=== PATIENT | male | born 1955 | race Caucasian/White ===

== ENCOUNTER 2016-11-12 07:49 | Emergency (ER) | payer BC ==
[~2016-11-12] VITALS: Ht 177.8 cm; Wt 73.7 kg
[~2016-11-12 07:49] MED LIST: DORZ1SOL OPB; TRAV0.00 OPB
[2016-11-12 07:52] VITALS: TEMP 36.9; Ht 177.8 cm; Wt 73.7 kg
[2016-11-12] MEDS ORDERED: DORZ2SOL17 OPB (08:03)
[2016-11-12 08:35] LABS: BASO % 0.5 %; BASO ABS # 0.04 K/uL (0-0.2); COMPLETE YES; EOS % 2.8 %; HEMATOCRIT 48.6 % (42-52); LYMPH % 29.1 %; LYMPH ABS # 2.42 K/uL (1.2-3.4); MEAN CELL VOLUME 94.2 fL (80-100); MEAN CORPUSCULAR HEMOGLOBIN 32.8 pg (25-34); MEAN CORPUSCULAR HGB CONC 34.8 g/dl (32-36); MEAN PLATELET VOLUME 10.1 fL (7.4-10.4); MONO % 8.7 %; NEUT % 58.9 %; PLATELET COUNT 315 K/uL (130-400); RED BLOOD COUNT 5.16 M/uL (4.7-6.1); WHITE BLOOD COUNT 8.31 K/uL (4.8-10.8)
--- NOTE | 2016-11-12 08:50 | DIAGNOSTIC IMAGING REPORT ---
LEFT LOWER EXTREMITY VENOUS DOPPLER CLINICAL HISTORY: Left leg cramping, pain COMPARISON STUDY: No previous studies for comparison. TECHNIQUE: Sonography of the deep venous system of the left lower extremity was performed. Compression and augmentation were evaluated. FINDINGS: The common femoral, superficial femoral and popliteal veins were compressible. Augmentation was normal. Flow was shown within the deep calf vessels. IMPRESSION: No evidence of deep venous thrombus within the left lower extremity. Electronically signed by: Ross Mckinney M.D. 11/12/2016 8:49 AM Dictated Date/Time: 11/12/2016 8:48 AM
[2016-11-12 08:57] LABS: BUN/CREATININE RATIO 21.7 (10-20); CALCIUM 9.1 mg/dl (8.5-10.1); MAGNESIUM 2.4 mg/dl (1.8-2.4); POTASSIUM 4.1 mmol/L (3.5-5.1)
[2016-11-12 09:00] LABS: ALB/GLOB RATIO 1.1 (0.9-2)
[2016-11-12 09:44] LABS: LYME DISEASE AB IGG NEG (NEG); LYME DISEASE AB IGM NEG (NEG)
[2016-11-12] MEDS ORDERED: HYDR-5688 PO (10:09)
[2016-11-12 10:14] VITALS: BP 170/95; PULSE 56; O2SAT 98
--- NOTE | 2016-11-12 10:15 | EMERGENCY ROOM VISIT NOTE ---
History First contact with patient: 08:07 Chief Complaint: LEG PAIN,LEG INJURY Stated Complaint: LEFT LEG PAIN History of Present Illness The patient is a 61 year old male who presents to the Emergency Room via private vehicle coming by with complaints of "left leg pain". The patient states that he's been experiencing left leg pain for quite some time now. He states that he at times will experience cramping sensation in the left lateral thigh. He states that the frequency of the spasms appear more frequent. He states that they're more painful than a charley horse. He states that they only last for a few seconds. He rates the pain as a 7-8/10. He denies any fevers, chills, genital pain. He denies any trauma to the area. He denies any pain at this current time. Review of Systems A complete 6-point Review of Systems was discussed with the patient, with pertinent positives and negatives listed in the History of Present Illness. All remaining Review of Systems questions can be considered negative unless otherwise specified. Past Medical/Surgical History Cholecystectomy. Family History Diabetes, cancer. Social History Smoking Status: Never Smoker Patient lives at home with . Current/Historical Medications Scheduled Dorzolamide Hcl (Trusopt Oph), 1 DROP OPB QAM Travoprost (Travatan Z), 1 DROPS OPB QAM Scheduled PRN Hydrocodone/Acetaminophen 5MG/325MG ([place] 5MG/325MG), 1-2 TABLET PO Q6 PRN for Pain Physical Exam Vital Signs Date Time Temp Pulse Resp B/P (MAP) Pulse Ox O2 Delivery O2 Flow Rate FiO2 11/12/16 10:14 56 18 170/95 98 Room Air 11/12/16 07:52 36.9 72 18 140/86 96 Room Air Physical Exam VITAL SIGNS - Vital signs and nursing notes were reviewed. patient is afebrile, hypertensive 140/86, non-tachycardic and saturating well on room air 96%. GENERAL -61-year-old male appearing his stated age who is in no acute distress. Communicates well with provider and answers questions appropriately. SKIN - Without rashes. Skin overlying the left leg is unremarkable. LUNGS - Chest wall symmetric without accessory muscle use, intercostals retractions, or central cyanosis. Normal vesicular breath sounds CTA B/L. No wheezes, rales, or rhonchi appreciated. CARDIAC - RRR with S1/S2. No murmur, rubs, or gallops appreciated. ABDOMEN - Abdominal contour without pulsations or visible masses. BS normoactive all four quadrants. No tenderness, palpable masses, hepatosplenomegaly, or ascites noted. EXTREMITIES - No clubbing or peripheral cyanosis. No pretibial edema present. There is no tenderness appreciated of the left leg. He is neurovascularly intact in this region. +5/5 strength noted in UE/LE bilaterally. No bony tenderness. Unremarkable examination of the extremity. Medical Decision & Procedures ER Provider Diagnostic Interpretation: LEFT LOWER EXTREMITY VENOUS DOPPLER CLINICAL HISTORY: Left leg cramping, pain COMPARISON STUDY: No previous studies for comparison. TECHNIQUE: Sonography of the deep venous system of the left lower extremity was performed. Compression and augmentation were evaluated. FINDINGS: The common femoral, superficial femoral and popliteal veins were compressible. Augmentation was normal. Flow was shown within the deep calf vessels. IMPRESSION: No evidence of deep venous thrombus within the left lower extremity. Electronically signed by: Ross Mckinney M.D. 11/12/2016 8:49 AM Dictated Date/Time: 11/12/2016 8:48 AM Laboratory Results 11/12/16 08:25 Red Blood Count 5.16, Mean Corpuscular Volume 94.2, Mean Corpuscular Hemoglobin 32.8, Mean Corpuscular Hemoglobin Concent 34.8, Mean Platelet Volume 10.1, Neutrophils (%) (Auto) 58.9, Lymphocytes (%) (Auto) 29.1, Monocytes (%) (Auto) 8.7, Eosinophils (%) (Auto) 2.8, Basophils (%) (Auto) 0.5, Neutrophils # (Auto) 4.90, Lymphocytes # (Auto) 2.42, Monocytes # (Auto) 0.72, Eosinophils # (Auto) 0.23, Basophils # (Auto) 0.04 11/12/16 08:25 Test 11/12/16 08:25 White Blood Count 8.31 K/uL (4.8-10.8) Red Blood Count 5.16 M/uL (4.7-6.1) Hemoglobin 16.9 g/dL (14.0-18.0) Hematocrit 48.6 % (42-52) Mean Corpuscular Volume 94.2 fL (80-100) Mean Corpuscular Hemoglobin 32.8 pg (25-34) Mean Corpuscular Hemoglobin Concent 34.8 g/dl (32-36) Platelet Count 315 K/uL (130-400) Mean Platelet Volume 10.1 fL (7.4-10.4) Neutrophils (%) (Auto) 58.9 % Lymphocytes (%) (Auto) 29.1 % Monocytes (%) (Auto) 8.7 % Eosinophils (%) (Auto) 2.8 % Basophils (%) (Auto) 0.5 % Neutrophils # (Auto) 4.90 K/uL (1.4-6.5) Lymphocytes # (Auto) 2.42 K/uL (1.2-3.4) Monocytes # (Auto) 0.72 K/uL (0.11-0.59) Eosinophils # (Auto) 0.23 K/uL (0-0.5) Basophils # (Auto) 0.04 K/uL (0-0.2) RDW Standard Deviation 47.7 fL (36.4-46.3) RDW Coefficient of Variation 13.9 % (11.5-14.5) Immature Granulocyte % (Auto) 0.0 % Immature Granulocyte # (Auto) 0.00 K/uL (0.00-0.02) Anion Gap 4.0 mmol/L (3-11) Est Creatinine Clear Calc Drug Dose 80.1 ml/min Estimated GFR () 93.7 Estimated GFR (Non- 80.9 BUN/Creatinine Ratio 21.7 (10-20) Calcium Level 9.1 mg/dl (8.5-10.1) Magnesium Level 2.4 mg/dl (1.8-2.4) Total Bilirubin 1.7 mg/dl (0.2-1) Aspartate Amino Transf (AST/SGOT) 19 U/L (15-37) Alanine Aminotransferase (ALT/SGPT) 28 U/L (12-78) Alkaline Phosphatase 52 U/L (45-117) Total Creatine Kinase 98 U/L (39-308) Total Protein 7.5 gm/dl (6.4-8.2) Albumin 4.0 gm/dl (3.4-5.0) Globulin 3.5 gm/dl (2.5-4.0) Albumin/Globulin Ratio 1.1 (0.9-2) Lyme Disease IgG Antibody NEG (NEG) Lyme Disease IgM Antibody NEG (NEG) Medical Decision Patient was seen and evaluated as above. After obtaining a thorough history and physical examination ultrasound was obtained as well as intravenous access. Patient was asked to us today with spasmodic left leg pain that is intermittent. He denies any pain upon presentation. He is well-appearing. CBC reveals no concerning leukocytosis, or anemia. CMP is significant for that of elevated bilirubin at 1.7. No other significant abnormality. Ultrasound negative for DVT. The patient this time appears stable for outpatient management, no evidence of blood clot, infection or fracture. There is been no history of trauma. He is able to ambulate. At this time I suspect likely nerve irritation. He was educated upon importance of follow-up. He was educated upon worrisome symptoms which to return, had questions prior to discharge, and was discharged home in good condition. He was given a short term supply pain medication for home. In evaluation treatment of this patient following differential diagnoses were entertained: Neurologic pain, fracture, DVT, electrolyte metabolic, among others. [place] Drug Monitoring Program Search Results: patient reviewed within database, no issues identified Impression Primary Impression: Leg pain, left Departure Information Dispostion Home / Self-Care Condition GOOD Prescriptions Hydrocodone/Acetaminophen 5MG/325MG ([place] 5MG/325MG) Tab 1-2 TABLET PO Q6 Y for Pain, #15 TAB For Initial Treatment Prov: Kurt Good PA-C 11/12/16 Referrals Sera Oh M.D. (PCP) Patient Instructions My [facility] Additional Instructions You have been treated in the Emergency Department for leg pain. You have been prescribed NORCO to be used for pain control. This is a narcotic medication. You cannot drive or consume alcohol while on this medicine. This medicine should only be used for pain that cannot be controlled with over-the- counter pain medicines. PLEASE NO TYLENOL WITH THIS For pain control, you can use the following [id number] medicines (if >12 yo):. - Regular strength (200 mg/tab) Advil (ibuprofen) 1-2 tabs every 4-6 hours as needed. Do not exceed a dose of 3200 mg per day. If this is a recent injury (<24 hrs), ice can be applied to the area of pain for the first 3 days to help decrease pain and inflammation. Ice massages can be performed by freezing water in a paper cup, peeling back the cup to expose the ice and then massaging over the affected area. Please follow-up with her family doctor regarding the elevated bilirubin, and your leg pain today. Return to the Emergency Department if your current symptoms worsen despite treatment course outlined above.
== END 2016-11-12 10:24 | disposition home or self-care (01) ==
LOC: C.EDB 07:51
DX: M79.605 Pain in left leg (principal); Z90.49 Acquired absence of other specified parts of digestive tract; Z83.3 Family history of diabetes mellitus

== ENCOUNTER 2023-02-23 16:29 | Inpatient (IN) ==
[2023-02-23 17:15] LABS: Alanine Aminotransferase 272 U/L (7-52); Albumin Globulin Ratio 0.7 (0.9-2); Albumin Level 3.2 gm/dl (3.4-5.0); Alkaline Phosphatase 134 U/L (34-104); Anion Gap 6 (3-11); Aspartate Aminotransferase 274 U/L (13-39); BUN Creatinine Ratio 23.9 (10-20); Bilirubin,Total 3.9 mg/dl (0.2-1.0); Blood Urea Nitrogen 28 mg/dl (6-23); Calcium 8.4 mg/dl (8.6-10.3); Carbon Dioxide 21 mmol/L (21-32); Chloride 97 mmol/L (98-107); Creatinine Clr Calc Pharmacy 63.3 ml/min; Est GFR (African American) 74.3 ml/min; Est GFR (Non-African American) 64.1 ml/min; Globulin 4.4 gm/dl (2.5-4.0); Glucose 117 mg/dl (70-99(Fasting)); Potassium 4.1 mmol/L (3.5-5.1); Sodium 124 mmol/L (136-145); Total Protein 7.6 gm/dl (6.0-8.3)
[2023-02-23] MEDS ORDERED: SODIUM CHLORIDE 0.9% 1,000 ML IV ONE ×2 (17:26→21:54)
[2023-02-23 17:30] LABS: Hematocrit (blood only) 32.4 % (42.0-52.0); Hemoglobin 12.1 g/dl (14.0-18.0); Mean Corpuscular Hemoglobin 34.3 pg (25.0-34.0); Mean Corpuscular Hgb Conc 37.3 g/dL (32.0-36.0); Mean Corpuscular Volume 91.8 fL (80.0-100.0); Mean Platelet Volume 13.2 fL (9.4-12.4); Nucleated RBC # (auto) 0.05 K/uL (0.00-0.12); Nucleated RBC % (auto) 0.3 %; Platelet Count 315 K/uL (130-400); RDW Coefficient of Variation 19.1 % (11.5-14.5); RDW Standard Deviation 47.9 fL (36.4-46.3); Red Blood Count 3.53 M/uL (4.70-6.10); White Blood Count 19.35 K/ul (4.8-10.8)
--- NOTE | 2023-02-23 17:36 | XRay Report ---
XR chest 1V not portable CLINICAL HISTORY: Shortness of breath. COMPARISON STUDY: Chest radiograph February 20, 2023. FINDINGS: Lung volumes are normal. There is no consolidation to suggest pneumonia. Calcified granulom a within the right midlung is unchanged and benign. There is no pneumothorax or pleural effusion. Car diac size is normal. Mediastinal contours are normal. There is no evidence for pulmonary edema. IMPRESSION: No acute cardiopulmonary findings. ACT 112: Negative or not required by law. Electronically signed by: Ross Mckinney M.D. 02/23/2023 5:35 PM
[2023-02-23 17:50] LABS: Influenza A virus by PCR Negative (Neg); Influenza B virus by PCR Negative (Neg); RSV by PCR Negative (Neg); SARS CoV2 RNA(COVID-19) Ceph NEGATIVE (Negative)
[2023-02-23 17:57] LABS: Basophils # (auto) 0.07 K/uL (0.00-0.20); Basophils % (auto) 0.4 %; Eosinophils # (auto) 0.03 K/uL (0.00-0.50); Eosinophils % (auto) 0.2 %; Immature Granulocytes # (auto) 0.47 K/uL (0.01-0.20); Immature Granulocytes % (auto) 2.4 %; Lymphocytes # (auto) 4.48 K/uL (1.20-3.40); Lymphocytes % (auto) 23.2 %; Monocytes # (auto) 6.28 K/uL (0.11-0.59); Monocytes % (auto) 32.5 %; Neutrophils # (auto) 8.02 K/uL (1.40-6.50); Neutrophils % (auto) 41.3 %
[2023-02-23 18:18] LABS: Procalcitonin 0.77 ng/ml (0-0.5)
[2023-02-23 18:30] LABS: Lyme Ab IgG w/WB Rflx Positive (Negative); Lyme Ab IgM w/WB Rflx Positive (Negative)
[2023-02-23] MEDS ORDERED: OPTIRAY 320 100ml IV ONE (18:36)
[2023-02-23] MEDS ORDERED: cefTRIAXone SODIUM 2,000 MG/50 ML BAG IV STA (18:38)
--- NOTE | 2023-02-23 19:15 | CT Scan Report ---
CT OF THE ABDOMEN AND PELVIS WITH CONTRAST CLINICAL HISTORY: Fever, elevated lfts. COMPARISON STUDY: Right upper quadrant ultrasound January 04, 2016. CT of the chest, abdomen pelvi s November 12, 2015. TECHNIQUE: Following IV administration of 91 mL of Optiray, axial images of the abdomen and pelvis we re obtained from the lung bases to the proximal femurs. Images were reviewed in the axial, sagittal, and coronal planes. IV contrast was administered without complication. Automated exposure control wa s utilized for the study. A dose lowering technique was utilized adhering to the principles of ALARA . CT DOSE: 918.82 mGy.cm FINDINGS: Lung bases are unremarkable. No pneumatosis, free air or portal venous gas is present. The liver is unremarkable by CT. There is no biliary ductal dilatation status post cholecystectomy. Splee n is not visualized. Enhancing nodules within the left upper quadrant have mildly increased in size s alisia prior CT. These represent splenules. The pancreas and adrenal glands are unremarkable. Water att enuation bilateral renal lesions reflect cysts. Multiple bilateral renal calculi measure up to 7 mm. There are no ureteral calculi. There is no hydronephrosis. There is moderate plaque within the abdomi nal aorta and the branch vessels. There is no evidence for a bowel obstruction. Colonic diverticulosi s is present. There is no evidence for acute diverticulitis. The appendix is normal. There is no lymp hadenopathy. There is no ascites. 3 mm bladder calculus is present. IMPRESSION: 1. No acute process within the abdomen or pelvis. 2. No biliary ductal dilatation status post cholecystectomy. Normal liver morphology. 3. Colonic diverticulosis. No evidence for acute diverticulitis. 4. No bowel obstruction. No bowel wall thickening. 5. Bilateral nephrolithiasis. 3 mm bladder calculus. No ureteral calculi. No hydronephrosis. ACT 112: Negative or not required by law. Electronically signed by: Ross Mckinney M.D. 02/23/2023 7:13 PM
[2023-02-23] MEDS ORDERED: DOXYCYCLINE HYCLATE 100 MG in DEXTROSE 5% MINI-B 100 ML IV STA (19:39)
[2023-02-23 20:00] LABS: Appearance Urine Clear (Clear); Bacteria Urine Automated Negative (Negative); Blood Urine 1+ (Negative); Color Urine Dark Yellow; Epithelial Cell Urine Auto >30 /lpf (0-5); Glucose Urine UA Negative (Negative); Ketones Urine Negative (Negative); Leukocyte Esterase Urine Negative (Negative); Nitrite Urine Negative (Negative); Protein Urine 1+ (Negative); RBC Urine Automated 0-4 /hpf (0-4); Specific Gravity Urine > 1.045 (1.000-1.030); Urobilinogen Urine Positive (Negative)
[2023-02-23 20:02] LABS: Bilirubin Urine 1+ (Negative)
[2023-02-23 20:11] LABS: Renal Epithelial Cells Urine 0-5 /lpf (0-5)
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
[2023-02-23] MEDS ORDERED: VANCOMYCIN CONSULT ACTIVE PRN (21:52)
[2023-02-23] MEDS ORDERED: VANCOMYCIN HCL 1,500 MG in SODIUM CHLORIDE 0.9% 500 ML IV ONE (22:00)
[2023-02-23 22:04] LABS: Partial Thromboplastin Ratio 1.2; Prothrombin Time 11.4 Seconds (9.0-12.0)
[2023-02-23] MEDS ORDERED: POLYETHYLENE (MIRALAX) 17 GM PACK PO PRN (23:14)
[2023-02-23] MEDS ORDERED: ONDANSETRON 4 MG OD TAB PO PRN (23:14)
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
[2023-02-24] MEDS ORDERED: MELATONIN 3 MG TAB PO ONE (00:13)
[2023-02-24] MEDS: IBUPROFEN 600 MG TAB PO SCH ×5 (00:14→23:14)
--- NOTE | 2023-02-24 02:09 | Billing Data ---
Date of Service February 23, 2023 Coding Level of Care Code 37031 INT INP/OBS CARE
[2023-02-24] MEDS: ENOXAPARIN INJ 40 MG/0.4 ML SYR SQ SCH (05:49)
--- NOTE | 2023-02-24 06:47 | Hospitalist Progress Note ---
Date of Service February 24, 2023 Assessment & Plan (1) Lyme disease: (2) Hyponatremia: (3) Transaminitis: (4) HTN (hypertension): (5) HLD (hyperlipidemia): (6) Bacteriuria: Plan Pt is a 67 yo male with a past medical history of HTN, HLD, and splenectomy, who presents to the hospital on 02/23 for illness for 2 weeks found to have lyme disease and hyponatremia. #Possible Lyme disease - pt had 2 weeks of headache, fatigue, chills, muscle aches, intermittent shortness of breath, loss of appetite, had tachy - Lyme IgG and IgM positive, western blot pending, Anaplasma smear negative, DNA pending, - given IV doxycycline and ceftriaxone in ED, then 1 dose vanco - continue ceftriaxone, if western blot + for lyme, will switch him to doxycycline #Sepsis - had tachycardia and leukocytosis on admission, procal elevated, lactate wnl - UA negative, culture pending - blood cultures pending, pt has active lyme infection - received 2L NSS thus far. #Hyponatremia - Na 124 on admission, today 129 - urine osmol wnl, plasma osmol low 277, urine Na 22, suspect - suspect secondary to recent illness with very limited oral intake for 2 weeks #Transaminitis - Elevated LFTs and bili on admission AST/ALT 274/272 - H/o cholecystectomy - improving today, will trend CMP - hepatitis panel pending #HTN -cont. lisinopril #HLD -cont. statin #Glaucoma -cont. dorzolamide and latanoprost drops DVT ppx: lovenox FEN/GI: regular Code Status: full Admission and Anticipated Discharge Date Admission Date: February 23, 2023 Supervising Physician Co-Signing Physician Notes Also saw the patient confirmed francis portions of the history and physical examination. I agree with the impression and plan as noted in the resident documentation above. Upon our visit just after lunch, the patient noted that he was feeling much better this morning. In fact, this is the best he is felt in the last 2 weeks. He was seen in the outpatient office on 02/20/2023 at which time a work-up for tickborne illnesses was drawn. I checked with the lab today and unfortunately these results are not back as of yet. Exam 135/77, 71, 19, 36.3, 90% on room air He looks tired, although nontoxic Heart rate is regular Respirations are nonlabored Data White blood cell count 16.45, hemoglobin 9.6, platelet count 298 Sodium 129, potassium 3.9, BUN 23, creatinine 0.86 AST 192, ALT 204 Procalcitonin 0.62 Anaplasma screen is negative; babesiosis screen negative; PCR for both Anaplasma babesiosis are pending. 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 Presumably secondary to active Lyme disease infection given positive IgG and IgM. Transaminitis likely secondary to infection; this can often be seen in anaplasmosis, although his platelet count is normal and the screen was negative. Hyponatremia likely secondary to decreased p.o. intake; it is improving Will treat with Ceftriaxone + Vancomycin for now given patient's asplenic state If Western blot positive, likely switch to doxycycline Subjective Pt is a 67 yo male with a past medical history of HTN, HLD, and splenectomy, who presents to the hospital on 02/23 for illness for 2 weeks found to have lyme disease and hyponatremia. Today, patient states that he is feeling so much better than when he came in. He states that he was able to finally eat a whole meal this morning and had no nausea or vomiting after eating breakfast. He states he feels like he could get up and go for a jog if we allowed him to. He notes that he has had no appetite to eat in 2 weeks now and finished off his whole breakfast for the first time since feeling ill. He has no questions or complaints at this time, feels he is doing well. Review of Systems Review of Systems: Constitutional: denies fever, chills, Cardio: denies chest pain, palpitations Resp: denies shortness of breath, cough Physical Exam Physical Exam: General:Alert and oriented, no acute distress, HEENT: Normocephalic, moist oral mucosa, Cardio: Regular rate and rhythm, no murmur, Resp:Lungs clear to auscultation b/l, no wheezes or rhonchi, Skin: Warm, pink, dry, Psych: Mood-affect congruence. Results & Data Results & Data Vital Signs (Past 12 Hours) Vital Signs Temp Pulse Pulse Resp BP Pulse Ox O2 Del Method 02/24/23 04:05 36.5 C 70 16 99/63 L 97 Room Air 02/23/23 23:28 36.3 C L 92 H 18 138/77 97 Room Air 02/23/23 23:26 86 02/23/23 22:29 Room Air 02/23/23 22:00 87 20 128/79 97 Room Air 02/23/23 19:43 79 02/23/23 19:00 77 18 119/79 97 Room Air Resident Activity Tracking Resident Involvement: Resident Care Provided Care Provided: Adult Hospital Medicine
[2023-02-24 07:16] LABS: INR 1.1 (0.9-1.1); Partial Thromboplastin Ratio 1.3; Partial Thromboplastin Time 35.6 Seconds (21.0-31.0); Prothrombin Time 11.9 Seconds (9.0-12.0)
[2023-02-24 07:32] LABS: Hematocrit (blood only) 26.9 % (42.0-52.0); Hemoglobin 9.6 g/dl (14.0-18.0); Mean Corpuscular Hemoglobin 31.9 pg (25.0-34.0); Mean Corpuscular Hgb Conc 35.7 g/dL (32.0-36.0); Mean Corpuscular Volume 89.4 fL (80.0-100.0); Mean Platelet Volume 12.4 fL (9.4-12.4); Nucleated RBC # (auto) 0.04 K/uL (0.00-0.12); Nucleated RBC % (auto) 0.2 %; Platelet Count 298 K/uL (130-400); RDW Coefficient of Variation 15.7 % (11.5-14.5); RDW Standard Deviation 48.7 fL (36.4-46.3); Red Blood Count 3.01 M/uL (4.70-6.10); White Blood Count 16.45 K/ul (4.8-10.8)
[2023-02-24 07:40] LABS: Albumin Globulin Ratio 0.8 (0.9-2); Albumin Level 2.5 gm/dl (3.4-5.0); BUN Creatinine Ratio 26.7 (10-20); Bilirubin,Total 2.7 mg/dl (0.2-1.0); Calcium 7.7 mg/dl (8.6-10.3); Creatinine Clr Calc Pharmacy 88.8 ml/min; Est GFR (Non-African American) 89.7 ml/min; Globulin 3.3 gm/dl (2.5-4.0); Potassium 3.9 mmol/L (3.5-5.1); Total Protein 5.8 gm/dl (6.0-8.3)
[2023-02-24 07:44] LABS: Basophils # (auto) 0.07 K/uL (0.00-0.20); Basophils % (auto) 0.4 %; Eosinophils # (auto) 0.11 K/uL (0.00-0.50); Eosinophils % (auto) 0.7 %; Immature Granulocytes # (auto) 0.37 K/uL (0.01-0.20); Immature Granulocytes % (auto) 2.2 %; Lymphocytes # (auto) 4.28 K/uL (1.20-3.40); Monocytes % (auto) 30.4 %; Neutrophils # (auto) 6.62 K/uL (1.40-6.50); Neutrophils % (auto) 40.3 %; Pappenheimer Bodies 1+; Polychromasia 1+; Target Cells 1+
[2023-02-24] MEDS ORDERED: INFLUENZA VACCINE HIGH-DOSE (HD-IIV4) PF 65+ 0.7mL SYR IM ONE (09:00)
[2023-02-24] MEDS: ATORVASTATIN 20 MG TAB PO SCH (10:18)
[2023-02-24] MEDS: DORZOLAMIDE HCL 2% OPH SOLN 10 ML BTL OP SCH (10:18)
[2023-02-24] MEDS: lisinopril 5 MG TAB PO SCH (10:18)
--- NOTE | 2023-02-24 12:22 | Electrocardiogram Report ---
Test Reason : Blood Pressure : / mmHG Vent. Rate : 088 BPM Atrial Rate : 088 BPM P-R Int : 158 ms QRS Dur : 088 ms QT Int : 360 ms P-R-T Axes : 027 -33 047 degrees QTc Int : 435 ms Normal sinus rhythm Left axis deviation Abnormal ECG When compared with ECG of 12-JAN-2016 10:01, Vent. rate has increased BY 32 BPM Confirmed by Shaheed Maddox ([id number]) on 02/24/2023 12:21:38 PM Referred By: REFERRED SELF Confirmed By:Mikel Maddox
[2023-02-24] MEDS ORDERED: cefTRIAXone SODIUM 2,000 MG in DEXTROSE 5 % MINI-B 50 ML IV SCH (20:00)
[2023-02-24] MEDS: LATANOPROST 0.005% OP SOLN 2.5 ML BTL OP SCH (21:28)
[2023-02-24] MEDS: MELATONIN 3 MG TAB PO PRN (23:17)
[2023-02-25] MEDS: IBUPROFEN 600 MG TAB PO SCH ×4 (05:41→19:13)
[2023-02-25] MEDS: ENOXAPARIN INJ 40 MG/0.4 ML SYR SQ SCH (05:42)
--- NOTE | 2023-02-25 06:50 | Hospitalist Progress Note ---
Date of Service February 25, 2023 Assessment & Plan (1) Lyme disease: (2) Hyponatremia: (3) Transaminitis: (4) HTN (hypertension): (5) HLD (hyperlipidemia): (6) Bacteriuria: Plan Pt is a 67 yo male with a past medical history of HTN, HLD, and splenectomy, who presents to the hospital on 02/23 for illness for 2 weeks found to have lyme disease and hyponatremia. Awaiting western blot and blood cultures for appropriate antibiotic selection at this time. Possible d/c tomorrow if cultures negative at 48 hours. #Possible Lyme disease - pt had 2 weeks of headache, fatigue, chills, muscle aches, intermittent shortness of breath, loss of appetite, had tachy - Lyme IgG and IgM positive, western blot pending, Anaplasma smear negative, DNA pending, - given IV doxycycline and ceftriaxone in ED, then 1 dose vanco - continue ceftriaxone, when/if blood cultures negative at 48 hours, will switch him to doxycycline #Sepsis - had tachycardia and leukocytosis on admission, procal elevated, lactate wnl - UA negative, culture pending but negative so far - blood cultures pending, negative so far - received 2L NSS #Hyponatremia, improving - Na 124 on admission, 129, now 131 - urine osmol wnl, plasma osmol low 277, urine Na 22, suspect - suspect secondary to recent illness with very limited oral intake for 2 weeks #Transaminitis - Elevated LFTs and bili on admission AST/ALT 274/272 - H/o cholecystectomy - continually improving - hepatitis panel pending #HTN -cont. lisinopril #HLD -cont. statin #Glaucoma -cont. dorzolamide and latanoprost drops DVT ppx: lovenox FEN/GI: regular Code Status: full Admission and Anticipated Discharge Date Admission Date: February 23, 2023 Supervising Physician Co-Signing Physician Notes Also saw the patient confirmed francis portions of the history and physical examination. I agree with the impression and plan as noted in the resident documentation above. Upon my exam midmorning, he notes that he is feeling improved compared to yesterday, but still pretty fatigued. He has remained afebrile since admission. Unfortunately, the outpatient lab work drawn 02/20/2023 is not been resulted. Exam 118/75, 72, 18, 36.3, 92% room air Afebrile, nontoxic Heart rate is regular, no murmurs appreciated Respirations are nonlabored, lungs clear throughout Abdomen soft and nontender, specifically no tenderness in the right upper quadrant. Data WBC 19.75, hemoglobin 9.7, platelet count 362 Sodium 131, potassium 4.2, BUN 25, creatinine 0.9 LFTs continue to trend down, AST 134, ALT 170 Anaplasma screen is negative; babesiosis screen negative; PCR for both Anaplasma babesiosis are pending. Lyme screen is positive for both IgG and IgM; Western blot is pending Blood cultures collected 02/23/2023 show no growth at 24 hours Urine culture collected 02/23/2023 shows no growth, final Assessment/Plan 67-year-old asplenic male with 2 weeks history of fatigue, headache, chills, malaise, presumed secondary to acute Lyme Continue ceftriaxone until blood cultures negative at 48 hours, then likely transition to doxycycline 100 mg p.o. twice daily Will reach out to outpatient lab this afternoon to see if we can get results of previously drawn Lyme Western blot for confirmation If continues to improve, anticipate discharge tomorrow Additional per resident documentation Subjective Pt is a 67 yo male with a past medical history of HTN, HLD, and splenectomy, who presents to the hospital on 02/23 for illness for 2 weeks found to have lyme disease and hyponatremia. Today, pt states he was not able to sleep well last night because it was cold in his room, then when the heat was turned up it ended up getting too hot. He states that despite being very tired this morning, he has no other complaints and still feels much better than when he came into the hospital. No questions or complaints today. Review of Systems Review of Systems: Constitutional: denies fever, chills, Cardio: denies chest pain, palpitations Resp: denies shortness of breath, Physical Exam Physical Exam: General:Alert and oriented, no acute distress, fatigued appearing HEENT: Normocephalic, moist oral mucosa, Cardio: Regular rate and rhythm, Resp:Lungs clear to auscultation b/l, no wheezes or rhonchi, Skin: Warm, pink, dry, Psych: Mood-affect congruence. Results & Data Results & Data Vital Signs (Past 12 Hours) Vital Signs Temp Pulse Pulse Resp BP BP Pulse Ox 02/25/23 04:07 36.5 C 71 20 113/75 97 02/25/23 00:11 75 02/24/23 23:26 36.5 C 71 20 107/66 96 02/24/23 19:25 36.3 C L 74 20 120/68 97 O2 Del Method 02/25/23 04:07 Room Air 02/25/23 00:11 02/24/23 23:26 Room Air 02/24/23 19:25 Room Air Resident Activity Tracking Resident Involvement: Resident Care Provided Care Provided: Adult Hospital Medicine
[2023-02-25 08:23] LABS: Hematocrit (blood only) 26.4 % (42.0-52.0); Hemoglobin 9.7 g/dl (14.0-18.0); Mean Corpuscular Hemoglobin 31.7 pg (25.0-34.0); Mean Corpuscular Hgb Conc 36.7 g/dL (32.0-36.0); Mean Corpuscular Volume 86.3 fL (80.0-100.0); Mean Platelet Volume 12.9 fL (9.4-12.4); Nucleated RBC % (auto) 0.5 %; Platelet Count 362 K/uL (130-400); RDW Coefficient of Variation 16.4 % (11.5-14.5); RDW Standard Deviation 50.4 fL (36.4-46.3); Red Blood Count 3.06 M/uL (4.70-6.10); White Blood Count 19.75 K/ul (4.8-10.8)
[2023-02-25 08:28] LABS: Albumin Globulin Ratio 0.8 (0.9-2); Albumin Level 2.6 gm/dl (3.4-5.0); BUN Creatinine Ratio 28.1 (10-20); Bilirubin,Total 2.3 mg/dl (0.2-1.0); Creatinine Clr Calc Pharmacy 85.8 ml/min; Est GFR (African American) 102.5 ml/min; Est GFR (Non-African American) 88.5 ml/min; Globulin 3.4 gm/dl (2.5-4.0); Potassium 4.2 mmol/L (3.5-5.1)
[2023-02-25 08:49] LABS: Basophils # (auto) 0.11 K/uL (0.00-0.20); Basophils % (auto) 0.6 %; Eosinophils # (auto) 0.16 K/uL (0.00-0.50); Eosinophils % (auto) 0.8 %; Immature Granulocytes # (auto) 0.93 K/uL (0.01-0.20); Immature Granulocytes % (auto) 4.7 %; Lymphocytes # (auto) 5.16 K/uL (1.20-3.40); Lymphocytes % (auto) 26.1 %; Monocytes # (auto) 5.35 K/uL (0.11-0.59); Monocytes % (auto) 27.1 %; Neutrophils # (auto) 8.04 K/uL (1.40-6.50); Neutrophils % (auto) 40.7 %
[2023-02-25 08:55] LABS: Pappenheimer Bodies 1+; Polychromasia 1+; Target Cells 1+
[2023-02-25] MEDS: ATORVASTATIN 20 MG TAB PO SCH (09:14)
[2023-02-25] MEDS: lisinopril 5 MG TAB PO SCH (09:14)
[2023-02-25] MEDS: DORZOLAMIDE HCL 2% OPH SOLN 10 ML BTL OP SCH (09:14)
[2023-02-25 12:37] LABS: HBSAG NON-REACTIVE (NON-REACTIVE); Hepatitis A Antibody IgM NON-REACTIVE (NON-REACTIVE); Hepatitis B Core Antibody IgM NON-REACTIVE (NON-REACTIVE)
[2023-02-25] MEDS: ATOVAQUONE 750 MG/5 ML UDC PO SCH (20:42)
[2023-02-25] MEDS: AZITHROMYCIN 500 MG in DEXTROSE 5% 250 ML IV SCH (20:42)
[2023-02-25] MEDS: LATANOPROST 0.005% OP SOLN 2.5 ML BTL OP SCH (20:43)
[2023-02-25] MEDS: MELATONIN 3 MG TAB PO PRN (20:47)
[2023-02-26] MEDS: ENOXAPARIN INJ 40 MG/0.4 ML SYR SQ SCH (05:50)
[2023-02-26] MEDS: IBUPROFEN 600 MG TAB PO PRN ×2 (05:50→21:43)
--- NOTE | 2023-02-26 06:45 | Hospitalist Progress Note ---
Date of Service February 26, 2023 Assessment & Plan (1) Lyme disease: (2) Hyponatremia: (3) Transaminitis: (4) HTN (hypertension): (5) HLD (hyperlipidemia): (6) Bacteriuria: Plan Pt is a 67 yo male with a past medical history of HTN, HLD, and splenectomy, who presents to the hospital on 02/23 for illness for 2 weeks found to have lyme disease and hyponatremia. #Babesiosis - pt had 2 weeks of headache, fatigue, chills, muscle aches, intermittent s hortness of breath, loss of appetite, had tachy - reviewed labs from [facility]; babesia IgG and IgM pos and peripheral smear positive for babesia, anaplasmosis IgG pos implying old infection and lyme IgM western blot negative - given IV doxycycline and ceftriaxone in ED, then 1 dose vanco, then was on ceftriaxone only - switched him to IV azithromycin and po atovaquone last night to cover Babesia, continue - consulted ID for question of duration of therapy in those with asplenia - since pt is asplenic, also ordered parasite smear for quantification of Babesia load and may need to do serial smears with adjustments in therapy accordingly #Hyponatremia, stable - Na 124 on admission, 129, 131, 130 - urine osmol wnl, plasma osmol low 277, urine Na 22, suspect - suspect secondary to recent illness with very limited oral intake for 2 weeks #Transaminitis - Elevated LFTs and bili on admission AST/ALT 274/272 - H/o cholecystectomy - continually improving - hepatitis panel pending #HTN -cont. lisinopril #HLD -cont. statin #Glaucoma -cont. dorzolamide and latanoprost drops DVT ppx: lovenox FEN/GI: regular Code Status: full Admission and Anticipated Discharge Date Admission Date: February 23, 2023 Supervising Physician Co-Signing Physician Notes I also saw the patient for francis portions of the clinical history and physical examination. Agree with impression and plan as noted in resident documentation above. Late yesterday afternoon, outpatient labs returned demonstrating positive serology for babesiosis, acute infection; serology also indicative of prior Lyme and Anaplasma infections. Patient was started on intravenous azithromycin 500 mg every 24 and atovaquone 750 orally mg twice daily. Additionally, the peripheral smear from today was positive for babesiosis, and after discussion with the lab, in retrospect the more inclusion cells present in the initial smear upon presentation. The patient continues to feel better. While he still tired/fatigued, he notes that he feels improved compared to yesterday. Denies abdominal pain, shortness of breath, chest pain. Exam 107/63, 74, 16, 36.4 C, 97% room air Afebrile, nontoxic Heart rate is regular, no murmurs appreciated Respirations are nonlabored, lungs clear throughout Abdomen soft and nontender, specifically no tenderness in the right upper quadrant. Data WBC trending up, 25.01, hemoglobin slightly down to 9.5, platelet count up to 425 Sodium 130, potassium 4.2, BUN 17, creatinine 0.6 LFTs continue to trend down, AST 127, ALT 158 Anaplasma screen is negative; babesiosis screen negative; PCR for both Anaplasma babesiosis are pending. Lyme screen is positive for both IgG and IgM; Western blot is pending Outpatient blood work ([facility]) Babesiosis IgG and IgM with marked elevations consistent with acute infection. Lyme IgG positive, but IgM negative consistent with prior infection. Anaplasma IgG positive, but IgM consistent with prior infection Peripheral smear dated 02/26/2023 demonstrates inclusion bodies; pathology consultation pending Two view chest x-ray obtained this morning shows no evidence of pulmonary edema, no consolidation. 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 Clinically stable, although will need to monitor CBC daily given developing leukocytosis and anemia Daily CMP; consider DIC panel if worsens Continue IV azithromycin 500mg daily and oral atovaquone 750 mg twice daily Repeat peripheral smear tomorrow with parasite quantification Consult ID for recommendations for duration of treatment; it will need to be prolonged due to the patient's asplenic state Additional per resident documentation Subjective Pt is a 67 yo male with a past medical history of HTN, HLD, and splenectomy, who presents to the hospital on 02/23 for illness for 2 weeks found to have lyme disease and hyponatremia. Today, pt is still tired but states he feels a whole lot better than he did yesterday. No questions or complaints at this time. Counseled on tick avoidance such as wearing long pants when hiking/in the f[place], using tick repellents, and careful monitoring of skin for ticks. Review of Systems Review of Systems: Constitutional: denies fever, chills, Cardio: denies chest pain, palpitations Resp: denies shortness of breath, Physical Exam Physical Exam: General:Alert and oriented, no acute distress, fatigued appearing HEENT: Normocephalic, moist oral mucosa, Cardio: Regular rate and rhythm, Resp:Lungs clear to auscultation b/l, no wheezes or rhonchi, Skin: Warm, pink, dry, Psych: Mood-affect congruence. Results & Data Results & Data Vital Signs (Past 12 Hours) Vital Signs Temp Pulse Pulse Resp BP Pulse Ox O2 Del Method 02/26/23 03:00 37.3 C 78 16 118/72 95 Room Air 02/25/23 23:22 76 02/25/23 23:00 36.7 C 69 16 123/75 95 Room Air Resident Activity Tracking Resident Involvement: Resident Care Provided Care Provided: Adult Hospital Medicine
[2023-02-26] MEDS ORDERED: Nursing to Pharmacy Communication SCH (07:45)
[2023-02-26 08:17] LABS: Albumin Globulin Ratio 0.7 (0.9-2); Albumin Level 2.6 gm/dl (3.4-5.0); BUN Creatinine Ratio 19.8 (10-20); Bilirubin,Total 2.4 mg/dl (0.2-1.0); Calcium 7.9 mg/dl (8.6-10.3); Creatinine Clr Calc Pharmacy 88.8 ml/min; Est GFR (Non-African American) 89.7 ml/min; Globulin 3.6 gm/dl (2.5-4.0); Potassium 4.2 mmol/L (3.5-5.1); Total Protein 6.2 gm/dl (6.0-8.3)
[2023-02-26 08:49] LABS: Hematocrit (blood only) 26.3 % (42.0-52.0); Hemoglobin 9.5 g/dl (14.0-18.0); Mean Corpuscular Hemoglobin 31.8 pg (25.0-34.0); Mean Corpuscular Hgb Conc 36.1 g/dL (32.0-36.0); Mean Platelet Volume 12.3 fL (9.4-12.4); Nucleated RBC # (auto) 0.36 K/uL (0.00-0.12); Nucleated RBC % (auto) 1.4 %; Platelet Count 425 K/uL (130-400); RDW Coefficient of Variation 16.9 % (11.5-14.5); RDW Standard Deviation 50.6 fL (36.4-46.3); Red Blood Count 2.99 M/uL (4.70-6.10); White Blood Count 25.01 K/ul (4.8-10.8)
[2023-02-26 08:56] LABS: Basophils # (auto) 0.16 K/uL (0.00-0.20); Basophils % (auto) 0.6 %; Eosinophils # (auto) 0.11 K/uL (0.00-0.50); Eosinophils % (auto) 0.4 %; Immature Granulocytes # (auto) 1.46 K/uL (0.01-0.20); Immature Granulocytes % (auto) 5.8 %; Lymphocytes # (auto) 7.12 K/uL (1.20-3.40); Lymphocytes % (auto) 28.5 %; Monocytes # (auto) 7.69 K/uL (0.11-0.59); Monocytes % (auto) 30.7 %; Neutrophils # (auto) 8.47 K/uL (1.40-6.50)
[2023-02-26 09:13] LABS: Pappenheimer Bodies 1+; Polychromasia 1+; Target Cells 1+
[2023-02-26] MEDS: lisinopril 5 MG TAB PO SCH (09:17)
[2023-02-26] MEDS: DORZOLAMIDE HCL 2% OPH SOLN 10 ML BTL OP SCH (09:18)
[2023-02-26] MEDS: ATORVASTATIN 20 MG TAB PO SCH (09:18)
[2023-02-26] MEDS: ATOVAQUONE 750 MG/5 ML UDC PO SCH ×3 (09:18→20:38)
[2023-02-26] MEDS: AZITHROMYCIN 500 MG in DEXTROSE 5% 250 ML IV SCH (09:22)
--- NOTE | 2023-02-26 11:58 | XRay Report ---
XR chest 2V PA/lateral CLINICAL HISTORY: Babesiosis TECHNIQUE: 2 views of the chest were obtained. Comparison: Comparison is made to chest radiograph 02/23/2023 FINDINGS: No lines and tubes are seen. Calcified aortic knob is seen. The lungs are clear. No evidence of pleur al effusion or pneumothorax. IMPRESSION: No acute chest disease. ACT 112: Negative or not required by law. Electronically signed by: Gavino Dc M.D. 02/26/2023 11:57 AM
[2023-02-26] MEDS: LATANOPROST 0.005% OP SOLN 2.5 ML BTL OP SCH (20:39)
[2023-02-26] MEDS ORDERED: DORZOLAMIDE HCL 2% OPH SOLN 10 ML BTL OP SCH (21:00)
[2023-02-26] MEDS: MELATONIN 3 MG TAB PO PRN (21:43)
--- NOTE | 2023-02-26 22:42 | Electrocardiogram Report ---
Test Reason : Blood Pressure : / mmHG Vent. Rate : 079 BPM Atrial Rate : 079 BPM P-R Int : 166 ms QRS Dur : 086 ms QT Int : 380 ms P-R-T Axes : 045 -28 023 degrees QTc Int : 435 ms Normal sinus rhythm Normal ECG When compared with ECG of 23-FEB-2023 16:42, No significant change was found Confirmed by Arik Mcintosh ([id number]) on 02/26/2023 10:41:38 PM Referred By: REFERRED SELF Confirmed By:Arik Mcintosh
[2023-02-26] MEDS ORDERED: guaiFENesin SUGAR FREE 100 MG/5 ML UDC PO STA (23:33)
[2023-02-27 03:23] LABS: Babesia microti DNA Detected (Not Detected)
[2023-02-27] MEDS: ENOXAPARIN INJ 40 MG/0.4 ML SYR SQ SCH (05:35)
--- NOTE | 2023-02-27 06:43 | Hospitalist Progress Note ---
Date of Service February 27, 2023 Assessment & Plan (1) Lyme disease: (2) Hyponatremia: (3) Transaminitis: (4) HTN (hypertension): (5) HLD (hyperlipidemia): (6) Bacteriuria: Plan Pt is a 67 yo male with a past medical history of HTN, HLD, and splenectomy, who presents to the hospital on 02/23 for illness for 2 weeks found to have lyme disease and hyponatremia. #Babesiosis - pt had 2 weeks of headache, fatigue, chills, muscle aches, intermittent s hortness of breath, loss of appetite, had tachy - reviewed labs from [facility]; babesia IgG and IgM pos and peripheral smear positive for babesia, anaplasmosis IgG pos implying old infection and lyme IgM western blot negative - given IV doxycycline and ceftriaxone in ED, then 1 dose vanco, then was on ceftriaxone only - switched him to IV azithromycin and po atovaquone last night to cover Babesia, continue - consulted ID for question of duration of therapy in those with asplenia - since pt is asplenic, also ordered parasite smear for quantification of Babesia load and may need to do serial smears with adjustments in therapy accordingly #Hyponatremia, stable - Na 124 on admission, 129, 131, 130 - urine osmol wnl, plasma osmol low 277, urine Na 22, suspect secondary to recent illness with very limited oral intake for 2 weeks #Transaminitis - Elevated LFTs and bili on admission AST/ALT 274/272 - H/o cholecystectomy - continually improving - hepatitis panel pending #HTN -cont. lisinopril #HLD -cont. statin #Glaucoma -cont. dorzolamide and latanoprost drops DVT ppx: lovenox FEN/GI: regular Code Status: full Admission and Anticipated Discharge Date Admission Date: February 23, 2023 Subjective Pt is a 67 yo male with a past medical history of HTN, HLD, and splenectomy, who presents to the hospital on 02/23 for illness for 2 weeks found to have lyme disease and hyponatremia. Today, no acute distress. No questions or complaints at this time. Review of Systems Review of Systems: Constitutional: denies fever, chills, Cardio: denies chest pain, palpitations Resp: denies shortness of breath, Physical Exam Physical Exam: General:Alert and oriented, no acute distress, fatigued appearing HEENT: Normocephalic, moist oral mucosa, Cardio: Regular rate and rhythm, Resp:Lungs clear to auscultation b/l, no wheezes or rhonchi, Skin: Warm, pink, dry, Psych: Mood-affect congruence. Results & Data Results & Data Vital Signs (Past 12 Hours) Vital Signs Temp Pulse Pulse Resp BP BP Pulse Ox 02/27/23 03:00 36.5 C 77 20 145/82 H 96 02/26/23 23:30 60 02/26/23 22:55 36.6 C 78 18 127/84 97 02/26/23 19:00 37.2 C 89 18 133/76 95 O2 Del Method 02/27/23 03:00 Room Air 02/26/23 23:30 02/26/23 22:55 Room Air 02/26/23 19:00 Room Air Resident Activity Tracking Resident Involvement: Resident Care Provided Care Provided: Adult Hospital Medicine
[2023-02-27 07:40] LABS: Albumin Globulin Ratio 0.8 (0.9-2); Albumin Level 2.7 gm/dl (3.4-5.0); BUN Creatinine Ratio 17.8 (10-20); Bilirubin,Total 2.4 mg/dl (0.2-1.0); Calcium 8.2 mg/dl (8.6-10.3); Creatinine Clr Calc Pharmacy 83.9 ml/min; Est GFR (African American) 102.1 ml/min; Est GFR (Non-African American) 88.1 ml/min; Globulin 3.5 gm/dl (2.5-4.0); Potassium 4.3 mmol/L (3.5-5.1); Total Protein 6.2 gm/dl (6.0-8.3)
[2023-02-27 07:55] LABS: Hematocrit (blood only) 26.3 % (42.0-52.0); Hemoglobin 9.4 g/dl (14.0-18.0); Mean Corpuscular Hemoglobin 34.2 pg (25.0-34.0); Mean Corpuscular Hgb Conc 35.7 g/dL (32.0-36.0); Mean Corpuscular Volume 95.6 fL (80.0-100.0); Mean Platelet Volume 11.7 fL (9.4-12.4); Nucleated RBC # (auto) 0.77 K/uL (0.00-0.12); Nucleated RBC % (auto) 3.3 %; Platelet Count 412 K/uL (130-400); RDW Coefficient of Variation 21.2 % (11.5-14.5); RDW Standard Deviation 53.7 fL (36.4-46.3); Red Blood Count 2.75 M/uL (4.70-6.10)
[2023-02-27] MEDS: ATOVAQUONE 750 MG/5 ML UDC PO SCH (08:05)
[2023-02-27] MEDS: ATORVASTATIN 20 MG TAB PO SCH (08:05)
[2023-02-27] MEDS: lisinopril 5 MG TAB PO SCH (08:06)
[2023-02-27] MEDS: AZITHROMYCIN 500 MG in DEXTROSE 5% 250 ML IV SCH (08:09)
[2023-02-27 08:27] LABS: Howell-Jolly Bodies 1+
[2023-02-27] MEDS ORDERED: LATANOPROST 0.005% OP SOLN 2.5 ML BTL OP SCH (09:00)
[2023-02-27 10:08] LABS: Ehrlichia chaff DNA Bld Negative (Negative)
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
[2023-02-27] MEDS ORDERED: DOXYCYCLINE HYCLATE 100 MG CAP PO SCH (10:30)
[2023-02-27 13:30] LABS: ALC (manual) 7.46 K/uL (1.2-3.4); ANC (manual) 7.22 K/uL (1.4-6.5); Basophils % (manual) 3 %; Howell-Jolly Bodies 1+; Lymphocytes # (manual) 7.46 K/uL (1.2-3.4); Lymphocytes % (manual) 32 %; Metamyelocytes % (manual) 3 %; Monocytes # (manual) 6.99 K/uL (0.11-0.59); Monocytes % (manual) 30 %; Myelocytes # (manual) 0.23 K/uL (0-0); Myelocytes % (manual) 1 %; Neutrophils # (manual) 7.22 K/uL (1.40-6.50); Neutrophils % (manual) 31 %; Pappenheimer Bodies 2+; Parasites Present; Polychromasia 2+
--- NOTE | 2023-02-27 15:00 | Discharge Summary ---
Date of Service February 27, 2023 Admission HPI Per Admitting Provider 67 yo male with PMHx asplenia, glaucoma, HLD, and HTN presents with acute illness. 2 weeks ago patient started developing headache, fatigue, chills, muscle aches, intermittent shortness of breath, loss of appetite. Has not been taking any fluids either. Denies chest pain, abdominal pain, dysuria, urinary frequency, joint pains, nausea, vomiting, diarrhea. He did go see his PCP earlier this week however has not heard back with results as of yet. He does have a history of Lyme disease few years ago and is prone to getting tick bites as he lives in the [facility]. He does recall a tick bite behind his right 1 month ago which she did pull out but denies any bull's-eye rash. Does have a history of asplenia as well as cholecystectomy. Admission Exam Per Admitting Provider Constitutional: ill-appearing, pleasant and normal affect, intact memory. AOx3. Vitals as above. HEENT: No scleral injection or discharge.Dry mucous membranes. Neck: Supple without lymphadenopathy or thyromegaly. Trachea midline. Lungs: Clear to auscultation bilaterally with good effort. No wheezes/rales/rhonchi. Cardiac: Regular rate and rhythm. No murmurs. No lower extremity edema. 2+ distal peripheral pulses. Abdomen: Bowel sounds present. Soft, nontender, and nondistended.No guarding. No hepatomegaly. MSK: No cyanosis or clubbing. Extremities motor strength 5/5. Skin: No rashes, warm, dry. Neurologic: no focal deficits Principal Diagnosis Babesiosis Discharge Exam General:Alert and oriented, no acute distress, fatigued appearing HEENT: Normocephalic, moist oral mucosa, Cardio: Regular rate and rhythm, Resp:Lungs clear to auscultation b/l, no wheezes or rhonchi, Skin: Warm, pink, dry, Psych: Mood-affect congruence. Discharge Data Allergies Allergy/AdvReac Type Severity Reaction Status Date / Time No Known Allergies Allergy Verified 02/23/23 17:48 Consultations 02/26/23 11:49 Consult Infectious Diseases Routine Ordered Studies 02/23/23 18:15 CT abd pelvis IV con only Stat Hospital Course (1) Lyme disease: (2) Hyponatremia: (3) Transaminitis: (4) HTN (hypertension): (5) HLD (hyperlipidemia): (6) Bacteriuria: Plan Pt is a 67 yo male with a past medical history of HTN, HLD, and splenectomy, who presents to the hospital on 02/23 for illness for 2 weeks found to have lyme disease and hyponatremia. Patient to follow with PCP within 1 week of discharge Peripheral smear and CBC ordered 1 day after discharge to check for resolution of babesiosis, if needed please repeat at follow up. Will start azithromycin 250mg daily, atovaquone 750mg q12hr, doxycycline 100mg q12hr for 14 days If peripheral smear is clear of babesiosis tomorrow and CBC continues to improve, may reduce abx course to 7 days (with doxycycline as a 10 day course). If patient still symptomatic at 7 days, please have them continue their antibiotic course for the full 14 days, recheck CBC and peripheral smear. #Babesiosis with Asplenia - pt had 2 weeks of headache, fatigue, chills, muscle aches, intermittent shortness of breath, loss of appetite, had tachy - reviewed labs from [facility]; babesia IgG and IgM pos and peripheral smear p ositive for babesia, anaplasmosis IgG pos implying old infection - given IV doxycycline and ceftriaxone in ED, then 1 dose vanco, then was on ceftriaxone only - switched him to IV azithromycin and po atovaquone 02/25 to cover Babesia - consulted ID, recommending azithromycin 250mg daily, atovaquone 750mg q12hr for at least 7-10 days with repeat peripheral smear tomorrow #Lyme Disease -Lyme IgM positive, PCR pending -Per ID will start doxycycline 100mg BID, sent 14 day course to pharmacy #Hyponatremia, stable - Na 124 on admission, 129, 131, 130 - urine osmol wnl, plasma osmol low 277, urine Na 22, suspect secondary to recent illness with very limited oral intake for 2 weeks #Transaminitis - Elevated LFTs and bili on admission AST/ALT 274/272 - H/o cholecystectomy - continually improving - hepatitis panel pending #HTN -cont. lisinopril #HLD -cont. statin #Glaucoma -cont. dorzolamide and latanoprost drops Total Time Total Time Spent Total Time Spent (In Minutes): <30 Discharge Plan Discharge Items Patient Disposition: Home - Self-Care Reason For Visit: ILLNESS Discharge Diagnosis: Babesiosis Activity: Resume your previous activity Non-emergency contact: Primary Care Provider Call non-emergency contact if: you have any medication questions Follow-up/Referrals: Sera Oh MD [Primary Care Provider] - 03/07/23 9:25 am (PCP follow up: March 07 @ 9:25) Diet: Regular Ambulatory Orders: Complete Blood Count no Diff (Routine) Timeframe: 1 Day Location: Determined by Patient Ordered By: Isabela Arthur Perip Smear for Parasites (Routine) Timeframe: 1 Day Location: Determined by Patient Ordered By: Isabela Miles Attending Provider Instructions: You were admitted to the hospital for T[place] Bour[place] Illness, which include Babesiosis and Lyme disease. You were treated with antibiotics and seen by infectious disease. You are at higher risk with this infection given your lack of spleen. Please continue your course of antibiotics and follow up with your PCP within 1 week. We will order a lab test for tomorrow to ensure your illness is resolving. A discharge summary will be sent to your primary care physician to ensure continuity of care. Please bring this discharge summary with you to your next office appointment so that your provider can review it at that time. Follow-up appointments: Make a follow-up appointment with your PCP within the next week. It is very important that you follow up with them shortly after discharge from the hospital. Keep all your follow-up appointments as already scheduled. If you cannot make an appointment, notify your provider. Medications: Your medication list has been reviewed and reconciled upon discharge to ensure accuracy and continuity of care. An updated list of all your medications is included with your hospital discharge paperwork. Please review this list closely, and make note of any changes. * We sent a new medication called Azithromycin to your pharmacy. Take Azit hromycin 250mg one tablet daily for 14 days. * We sent a new medication called Atovaquone to your pharmacy. Take Atovaquone 750mg (5ml) every 12 hours for 14 days. Please take with fatty foods. * We sent a new medication called Doxycycline to your pharmacy. Take Doxycycline 100mg 1 tablet every 12 hours for 14 days. Take your medications as instructed; do not skip a dose of your medicines. Make sure all of your doctors know every medicine you are taking (including dqxv-off-tpnvdpp medicines, vitamins, and supplements). Call your primary care provider before taking any new medicines (including jpxi-nnk-ejftiys medicines, vitamins, and supplements), because some of these may interact with your current medications, or may make your symptoms worse. Tell your primary care provider if you cannot afford your medications. CONTACT YOUR PRIMARY CARE PROVIDER if you experience any of the following: Persistent fever Increasing fatigue, shortness of breath Difficulty following your treatment plan, or difficulty taking medications CALL 911 OR GO TO THE EMERGENCY DEPARTMENT if you experience any of the following: Sudden, severe abdominal pain or nausea/vomiting Severe chest pain, or chest pain that radiates (moves) to your jaw or arm Sudden, severe shortness of breath or difficulty breathing Thank you for allowing us to participate in your care. Pending Studies at Discharge: Yes Stand-Alone Forms: My [facility], Smoking Cessation Medications and DC Order Prescriptions: New atovaquone [Mepron] 750 mg/5 mL Suspension 750 mg PO Q12 14 Days Qty: 210 0RF doxycycline hyclate 100 mg Capsule 100 mg PO BID 14 Days Qty: 28 0RF azithromycin 250 mg tablet 250 mg PO DAILY 14 Days Qty: 14 0RF Continued dorzolamide (PF) 2 % Drops 1 drp OPHTHALMIC (EYE) QAM atorvastatin 20 mg Tablet 20 mg PO QAM lisinopril 5 mg Tablet 5 mg PO QAM azelastine 137 mcg (0.1 %) Aerosol,[place] 1 spray INTRANASAL BID PRN (Reason: Congestion) latanoprost 0.005 % drops 1 drp ophthalmic (eye) HS acetaminophen 500 mg Tablet 500 mg PO Q6H PRN (Reason: Pain) Discharge Orders: Discharge Order (Routine); Ordered 02/27/23 Ordered By: Isabela Galicia Admission Data Admit Date/Time: 02/23/23 21:36 Attending Provider: Jese Sebastian Admit Provider: Maxime Schulte Primary Care Provider: Sera Oh Other Providers: Shani Lockett; Osei Acevedo; Cyndi Noland; Ariadne Burris; Valentina Cooper; Angelita Martins; Bekah Choudhary; Tarik Bess; Gianna Yanes; Diane Jeffers; Kenji West Other Interventions: Discharge Summary Assessment (RN) Last Done: 02/27/23 15:58 Supervising Physician Co-Signing Physician Notes I personally examined the patient and verified all francis points of history and exam, discussed case, and agree with decision making with Dr Galicia Feeling okay and would like to go home. Infectious disease input appreciated. Duration of treatment/outline of plan of care appreciated. Vitals noted, in general he is awake and alert pleasant no distress. HEENT normocephalic atraumatic mucous membranes moist. Breathing unlabored no accessory muscle use good effort. Skin shows no rashes no pallor or icterus. Neuro without focal deficits. Babesiosisin an asplenic patient does appear to be improving. He would like to go home and this appears to be reasonable. Peripheral smear tomorrow, treatment as outlined above and by infectious disease. Office follow-up by the end of the week. Return if any worsening. Resident Activity Tracking Resident Involvement: Resident Care Provided Care Provided: Adult Hospital Medicine
--- NOTE | 2023-02-27 17:28 | Billing Data ---
Date of Service February 27, 2023 Coding Level of Care Code 34801 IN/OBS DISCH 30 MIN/LESS
[2023-02-28 03:46] LABS: 18KDIGG Band REACTIVE; 23KDIGG Band REACTIVE; 23KDIGM Band REACTIVE; 28KDIGG Band REACTIVE; 30KDIGG Band NON-REACTIVE; 39KDIGG Band REACTIVE; 39KDIGM Band NON-REACTIVE; 41KDIGG Band REACTIVE; 41KDIGM Band NON-REACTIVE; 45KDIGG Band NON-REACTIVE; 58KDIGG Band REACTIVE; 66KDIGG Band REACTIVE; 93KDIGG Band REACTIVE; Lyme Antibodies, WB IgG POSITIVE (NEGATIVE); Lyme Antibodies, WB IgM NEGATIVE (NEGATIVE)
--- NOTE | 2023-03-01 15:32 | Coding Query ---
SEPSIS To promote full compliance with coding requirements relating to patient care, physician participation is requested in all cases of tobacco weigher uncertainty. Please assist us with the question(s) below: In responding to this query, please exercise your independent professional judgement. The fact that a question is asked does not imply that any particular answer is desired or expected. We appreciate your clarification on this issue. The medical record reflects the following clinical findings: Patient admitted with lyme disease and babesiosis. 02/24 & 02/25 progress notes mentioned Sepsis . Please check below the diagnosis that was treated , if applicable. Thanks for your help. Fernando Gaspar [facility] ____ ( )Bacteremia (Nonspecific laboratory finding of bacteria in the blood) Specify Organism ( ) Present on Admission ( ) Not present on admission ( ) Unable to clinically determine ( ) Septicemia (Systemic disease associated with the presence of pathogenic microorganisms in the blood): Specify Organism () Present on Admission () Not present on admission () Unable to clinically determine (x ) Sepsis Specify Organism Specify Associated Condition/Diagnosis (x ) Present on Admission ( ) Not present on admission ( ) Unable to clinically determine ( ) Severe Sepsis (Sepsis associated with acute organ dysfunction) Specify Organism Specify Associated Condition/Diagnosis ( ) Present on Admission ( ) Not present on admission ( ) Unable to clinically determine ( ) Septic Shock (Severe sepsis with acute circulatory failure, unexplained by other causes) ( ) Present on Admission ( ) Not present on admission ( ) Unable to clinically determine ( ) Other, patient has: sepsis due to babesiosis MTDD
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
== END 2023-02-27 18:04 | disposition home or self-care (01) | DRG 872 ==
LOC: ED 16:29 → SUATTDRO 21:36 → 2S 21:36